=== PATIENT | male | born 1990 | race Caucasian/White ===

== ENCOUNTER 2018-11-12 10:12 | Inpatient (IN) | payer MEDICAID ==
[~2018-11-12] VITALS: Ht 175.3 cm; Wt 63.5 kg
[2018-11-12] MEDS ORDERED: PERTUSS(ACELL),DIPH,TET VAC/PF 0.5 ML VIAL IM ONE (12:00)
[2018-11-12] MEDS ORDERED: BACITRACIN 0.9 GM PACKET OINTMENT TP ONE (12:00)
[2018-11-12] MEDS ORDERED: LORazepam 2 MG TABLET PO PRN (12:15)
[2018-11-12] MEDS ORDERED: HALOPERIDOL 5 MG TABLET PO PRN (12:15)
[2018-11-12] MEDS ORDERED: ZOLPIDEM TARTRATE 10 MG TABLET PO PRN (12:15)
[2018-11-12 16:52] VITALS: BP 125/86
[2018-11-12] MEDS ORDERED: DOCUSATE SODIUM 100 MG CAPSULE PO PRN (17:30)
[2018-11-12] MEDS ORDERED: PETROLATUM,WHITE 71 GM JELLY TP PRN (17:30)
[2018-11-12] MEDS ORDERED: LOPERAMIDE HCL 2 MG CAPSULE PO PRN (17:30)
[2018-11-12] MEDS ORDERED: ALBUTEROL SULFATE HFA 90 MCG/PUFF 8 GM INHALER IH PRN (17:30)
[2018-11-12] MEDS ORDERED: CloNIDine HCL 0.1 MG TABLET PO PRN (17:30)
[2018-11-12] MEDS ORDERED: ACETAMINOPHEN 325 MG TABLET PO PRN (17:30)
[2018-11-12] MEDS ORDERED: NICOTINE 14 MG/24 HOUR PATCH TD PRN (17:30)
[2018-11-12] MEDS ORDERED: GuaiFENesin/D-METHORPHAN [SUGAR-FREE] 200-20MG/10 ML SYRUP UDCUP PO PRN (17:30)
[2018-11-12] MEDS ORDERED: ONDANSETRON HCL 4 MG TABLET PO PRN (17:30)
[2018-11-12] MEDS ORDERED: MAG HYDROX/AL HYDROX/SIMETH ES 30 ML SUSPENSION UDCUP PO PRN (17:30)
[2018-11-12] MEDS ORDERED: IBUPROFEN 400 MG TABLET PO PRN (17:30)
[2018-11-12] MEDS ORDERED: MAGNESIUM HYDROXIDE SUSPENSION 30 ML UDCUP PO PRN (17:30)
[2018-11-13 06:42] VITALS: BP 105/70
[2018-11-13 08:25] VITALS: BP 110/67
[2018-11-13 16:00] VITALS: BP 107/65
[2018-11-14 07:25] VITALS: BP 111/69
[2018-11-14 08:55] VITALS: BP 115/75
[2018-11-14 16:22] VITALS: BP 108/66
[2018-11-15 06:52] VITALS: BP 127/68
[2018-11-15 08:42] VITALS: BP 120/88
== END 2018-11-15 15:00 | disposition home or self-care (01) | DRG 750 ==
LOC: EMS 10:16 → B3A 15:13
PROVIDERS: ADMIT Psychiatry & Neurology Child & Adolescent Psychiatry; ATTEND Psychiatry & Neurology Child & Adolescent Psychiatry
PROC: 3E0234Z Introduction of Serum, Toxoid and Vaccine into Muscle, Percutaneous Approach (ICD-10-PCS; principal; 2018-11-13)
DX: F20.9 Schizophrenia, unspecified (principal); R45.851 Suicidal ideations; S60.819A Abrasion of unspecified wrist, initial encounter; S61.419A Laceration without foreign body of unspecified hand, initial encounter; Z53.20 Procedure and treatment not carried out because of patient's decision for unspecified reasons; F15.90 Other stimulant use, unspecified, uncomplicated; R00.0 Tachycardia, unspecified; Z79.899 Other long term (current) drug therapy; F19.10 Other psychoactive substance abuse, uncomplicated; X58.XXXA Exposure to other specified factors, initial encounter; Y93.89 Activity, other specified; Y92.89 Other specified places as the place of occurrence of the external cause; Y99.8 Other external cause status; Z71.51 Drug abuse counseling and surveillance of drug abuser
CPT/HCPCS: 87081